=== PATIENT | female | born 1985 | race Caucasian/White ===

== ENCOUNTER 2018-09-18 20:51 | Emergency (ER) | payer SELFPAY ==
[2018-09-18 22:20] LABS: BASO % 0.1 % (0-6); GRAN % 67.5 % (47-80); HEMATOCRIT 40.5 % (35.0-47.0); HEMOGLOBIN 13.5 gm/dl (11.6-16.0); LYMPH % 21.5 % (16-45); MEAN CELL VOLUME 85.6 fl (81-97); MEAN CORPUSCULAR HEMOGLOBIN 28.5 pg (27-33); MEAN CORPUSCULAR HGB CONC 33.3 g/dl (32-36); MEAN PLATELET VOLUME 9.8 fl (7.4-10.4); MONO % 7.9 % (0-9); PLATELET COUNT 189 K/uL (130-400); RED BLOOD COUNT 4.73 M/uL (3.80-5.40); RED CELL DISTRIBUTION WIDTH 13.9 % (11.5-14.5); WHITE BLOOD COUNT W/O DIFF 8.6 K/uL (4.2-12.2)
[2018-09-18 22:31] LABS: INR 1.1; PROTHROMBIN TIME (PATIENT) 10.8 SECONDS (9.5-12.1)
[2018-09-18 22:41] LABS: PARTIAL THROMBOPLASTIN TIME 26.9 SECONDS (24.5-39.1)
--- NOTE | 2018-09-18 22:41 | Emergency Department Record ---
History of Present Illness - General Chief complaint: Swelling of legs Stated complaint: LT LEG UNEXPLAINED BRUISING/SWELLING Time Seen by Provider: 09/18/18 22:00 Source: Patient Mode of Arrival: Ambulatory Limitations: No limitations - History of Present Illness Initial comments: pt has had sudden unexplained onset of swelling, ecchymosis and pain along medial aspect of thigh. pt has an aicd. there is a family hx of dvts MD Complaint: Extremity pain, Extremity swelling Onset/Timin -: Days(s) Location: Left, Lower Leg, Thigh History of Same: No Severity scale (1-10): 3 Quality: Aching Worsens with: Walking Associated Symptoms: Other - Related Data Home Medications Medication Instructions Recorded Confirmed Last Taken Nadolol [Corgard] 20 mg PO DAILY 09/18/18 09/18/18 09/18/18 Allergies Allergy/AdvReac Type Severity Reaction Status Date / Time morphine AdvReac VOMITING Verified 09/18/18 21:25 Travel Screening - Travel/Exposure Within Last 30 Days Have you traveled within the last 30 days?: No - Travel Symptoms Symptom Screening: None Review of Systems Reviewed: No additional complaints except as noted below Constitutional: Reports: As per HPI. Denies: Chills, Fever, Malaise, Night sweats, Weakness, Weight change Eyes: Reports: As per HPI. Denies: Eye discharge, Eye pain, Photophobia, Vision change ENT: Reports: As per HPI. Denies: Congestion, Dental pain, Ear pain, Epistaxis , Hearing loss, Throat pain Respiratory: Reports: As per HPI. Denies: Cough, Dyspnea, Hemoptysis, Stridor, Wheezes Cardiovascular: Reports: As per HPI, Palpitations. Denies: Arrhythmia, Chest pain, Dyspnea on exertion, Edema, Murmurs, Orthopnea, Paroxysmal nocturnal dyspnea, Rheumatic Fever, Syncope Endocrine: Reports: As per HPI. Denies: Fatigue, Heat or cold intolerance, Polydipsia, Polyuria Gastrointestinal: Reports: As per HPI. Denies: Abdominal pain, Constipation, Diarrhea, Hematemesis, Hematochezia, Melena, Nausea, Vomiting Genitourinary: Reports: As per HPI. Denies: Abnormal menses, Discharge, Dyspareunia, Dysuria, Frequency, Hematuria, Incontinence, Retention, Urgency Musculoskeletal: Reports: As per HPI. Denies: Arthralgia, Back pain, Gout, Joint swelling, Myalgia, Neck pain Skin: Reports: As per HPI. Denies: Bruising, Change in color, Change in hair/ nails, Lesions, Pruritus, Rash Neurological: Reports: As per HPI. Denies: Abnormal gait, Confusion, Headache, Numbness, Paresthesias, Seizure, Tingling, Tremors, Vertigo, Weakness Psychiatric: Reports: As per HPI. Denies: Anxiety, Auditory hallucinations, Depression, Homicidal thoughts, Suicidal thoughts, Visual hallucinations Hematological/Lymphatic: Reports: As per HPI. Denies: Anemia, Blood Clots, Easy bleeding, Easy bruising, Swollen glands Past Medical History - SOCIAL HISTORY Smoking Status: Never smoker - RESPIRATORY Hx Respiratory Disorders: No - CARDIOVASCULAR Hx Cardio Disorders: Yes Comment:: CPVT - NEURO Hx Neuro Disorders: No - GI Hx GI Disorders: No - Hx Genitourinary Disorders: No - ENDOCRINE Hx Endocrine Disorders: No - MUSCULOSKELETAL Hx Musculoskeletal Disorders: No - PSYCH Hx Psych Problems: No - HEMATOLOGY/ONCOLOGY Hx Hematology/Oncology Disorders: No Family Medical History Any Significant Family History?: Yes Family Hx Comment (NOT TO BE USED IN PLACE OF ITEMS BELOW): Mom w/blood clots- DVT Hx Cancer: Grandparents Hx Heart Disease: Father, Brother/Sister *Heart Comment: A-Fib and CPTV Hx Kidney Disease: Father *Kidney Comment: stones Hx Resp Disorders: Mother *Resp Comment: COPD Hx Stroke: Father Physical Exam - General General Appearance: Alert, Oriented x3, Cooperative, Mild distress - Head Head exam: Normal inspection - Eye Eye exam: Normal appearance, PERRL, EOMI Pupils: Normal accommodation - ENT ENT exam: Normal exam, Mucous membranes moist, Normal external ear exam, Normal orophraynx Ear exam: Normal external inspection. negative: External canal tenderness Nasal Exam: Normal inspection. negative: Discharge, Sinus tenderness Mouth exam: Normal external inspection, Tongue normal Teeth exam: Normal inspection. negative: Dental caries Throat exam: Normal inspection. negative: Tonsillar erythema, Tonsillar exudate - Neck Neck exam: Normal inspection, Full ROM. negative: Tenderness - Respiratory Respiratory exam: Normal lung sounds bilaterally. negative: Respiratory distress - Cardiovascular Cardiovascular Exam: Regular rate, Normal rhythm, Normal heart sounds - GI/Abdominal GI/Abdominal exam: Soft, Normal bowel sounds. negative: Tenderness - Rectal Rectal exam: Deferred - exam: Deferred - Extremities Extremities exam: Normal inspection, Full ROM, Normal capillary refill, Tenderness (l thigh) Image of Full Body: 1 - ecchymosis - Back Back exam: Reports: Normal inspection, Full ROM. Denies: Muscle spasm, Rash noted, Tenderness - Neurological Neurological exam: Alert, CN II-XII intact, Normal gait, Oriented X3 - Psychiatric Psychiatric exam: Normal affect, Normal mood - Skin Skin exam: Dry, Intact, Normal color, Warm Course Vital Signs 09/18/18 21:17 Temperature 98.4 F Pulse Rate [ 48 L Pulse Ox Probe] Respiratory 20 Rate Blood Pressure 139/72 [Left Arm] Pulse Ox 100 Medical Decision Making - Lab Data Result diagrams: 09/18/18 22:14 Lab Results 09/18/18 09/18/18 Range/Units 22:14 22:14 WBC 8.6 (4.2-12.2) K/uL RBC 4.73 (3.80-5.40) M/uL Hgb 13.5 (11.6-16.0) gm/dl Hct 40.5 (35.0-47.0) % MCV 85.6 (81-97) fl MCH 28.5 (27-33) pg MCHC 33.3 (32-36) g/dl RDW 13.9 (11.5-14.5) % Plt Count 189 (130-400) K/uL MPV 9.8 (7.4-10.4) fl Gran % 67.5 (47-80) % Lymphocytes % 21.5 (16-45) % Monocytes % 7.9 (0-9) % Eosinophils % 3.0 (0-6) % Basophils % 0.1 (0-6) % PT 10.8 (9.5-12.1) SECONDS INR 1.1 Disposition Disposition: Transfer Clinical Impression: Leg swelling, Ecchymosis Disposition: Acute Care Hospital Transfer Transfer To: [facility] Reason For Transfer: needs doppler Accepting Physician: dr goldman Time Discussed w/Accepting Physician: 22:42 Quality - Quality Measures Quality Measures: N/A - Blood Pressure Screening Does Patient Have Any of the Following: No Blood Pressure Classification: Pre-Hypertensive BP Reading Systolic Measurement: 139 Diastolic Measurement: 72 Screening for High Blood Pressure: < Pre-Hypertensive BP, F/U Documented > [ [id number]] Pre-Hypertensive Follow-up Interventions: Follow-up with rescreen every year.
== END 2018-09-18 22:50 | disposition short-term general hospital (02) ==
LOC: ER 20:51
DX: S70.12XA Contusion of left thigh, initial encounter (principal); M79.652 Pain in left thigh; R22.42 Localized swelling, mass and lump, left lower limb; X58.XXXA Exposure to other specified factors, initial encounter
CPT/HCPCS: 85025; 85610; 85730; 99283; 99284